=== PATIENT | male | born 1960 | race Caucasian/White ===

== ENCOUNTER 2018-12-16 01:12 | Inpatient (IN) | payer OTHER ==
[2018-12-15 15:15] LABS: INR 0.96
[~2018-12-16] VITALS: Ht 177.8 cm; Wt 87.5 kg
[2018-12-16] VITALS (13 sets, daily range): BP systolic 95–133; BP diastolic 43–87
[~2018-12-16 01:12] MED LIST: ACET500T68 PO
[2018-12-16] MEDS ORDERED: fentaNYL CITR 100 MCG/2 ML AMP ONE (11:41)
[2018-12-16] MEDS ORDERED: KETAMINE HCL 500 MG/10 ML VIAL ONE (11:42)
[2018-12-16] MEDS ORDERED: DEXAMETHASONE SOD PHOS 10MG/ML ONE (11:43)
[2018-12-16] MEDS ORDERED: PROPOFOL EMUL(*) 10MG/ML 20 ML 20 ML ONE (11:43)
[2018-12-16] MEDS ORDERED: LIDOCAINE 2% IV 100 MG/5ML SYR ONE (11:43)
[2018-12-16] MEDS ORDERED: ONDANSETRON 4 MG/2 ML VIAL ONE (11:43)
[2018-12-16] MEDS ORDERED: CELECOXIB 200 MG CAP PO ONE (12:30)
[2018-12-16] MEDS ORDERED: MIDAZOLAM 2 MG/2 ML VIAL IVP PRN (12:30)
[2018-12-16] MEDS ORDERED: ACETAMINOPHEN 500 MG TAB PO ONE (12:30)
[2018-12-16] MEDS ORDERED: ROPIVACAINE/EPI/CLONIDINE/KET 50 ML SYRINGE INJ ONE (12:30)
[2018-12-16] MEDS ORDERED: TRANEXAMIC AC 1000 MG/10ML SDV 1,000 MG in DEXTROSE 5% 50 ML BAG 50 ML IV ONE (12:30)
[2018-12-16] MEDS ORDERED: BACITRACIN 50000 UNIT/VIAL 100,000 UNIT in NS 0.9% 3000 ML IRRIGATION BAG 3,000 ML IR ONE (12:30)
[2018-12-16] MEDS ORDERED: ceFAZolin(*) 2GM/D5W 50ML 50 ML IVPB ONE (12:30)
[2018-12-16] MEDS ORDERED: PREGABALIN 150 MG CAPSULE PO ONE (12:30)
[2018-12-16] MEDS ORDERED: FAMOTIDINE 20 MG TAB PO ONE (12:30)
[2018-12-16] MEDS ORDERED: LIDOCAINE/SOD BICARB 8.4% SYR ID ONE (12:30)
[2018-12-16] MEDS ORDERED: NORMOSOL R SOLN(*) 1000 ML BAG 1,000 ML IV PRN (12:30)
[2018-12-16] MEDS ORDERED: diphenhydrAMINE 25 MG CAP PO PRN (15:40)
[2018-12-16] MEDS ORDERED: HYDROmorphone HCL 2 MG/ML SDV IVP PRN (15:40)
[2018-12-16] MEDS ORDERED: FLUSH 10 ML SYR IVP PRN (15:40)
[2018-12-16] MEDS ORDERED: BISACODYL 10 MG SUPP PR PRN (15:40)
[2018-12-16] MEDS ORDERED: diphenhydrAMINE 50 MG/ML VIAL IVP PRN (15:40)
[2018-12-16] MEDS ORDERED: MAGNESIUM HYDROXIDE* 30ML UDCP PO PRN (15:40)
[2018-12-16] MEDS ORDERED: PROMETHAZINE 25 MG/ML 1 ML AMP IVP PRN (15:40)
[2018-12-16] MEDS ORDERED: ZOLPIDEM TARTRATE 5 MG TAB PO PRN (15:40)
[2018-12-16] MEDS ORDERED: ONDANSETRON 4 MG/2 ML VIAL IVP PRN (15:40)
[2018-12-16] MEDS ORDERED: MAGNESIUM CITRATE 300 ML BTL PO PRN (15:40)
[2018-12-16] MEDS ORDERED: LR 1000 ML BAG 1000 ML IV PRN (15:40)
--- NOTE | 2018-12-16 16:26 | Hospitalist Consultation ---
History of Present Illness Requesting Physician Dr. Adams Reason for Consult Medical Management Chief Complaint s/p right hip replacement History of Present Illness He was admitted s/p right hip replacement. It is reported the surgery went well and without complication. History Home Meds Reported Medications Acetaminophen (TYLENOL EXTRA STRENGTH) 500 Mg Tablet, 500 MG PO PRN, TAB 12/08/18 Allergies: Coded Allergies: No Known Drug Allergies (Unverified , 12/08/18) Hx Smoking: Yes (OCCASSIONL CIGAR) Smoking Status: Former Smoker Caffeine Intake: Coffee Caffeine/Cups Per Day: 1 Hx Alcohol Use: Yes Alcohol Used: Beer Hx Substance Use Disorder: No Social Drug Use: Never Review of Systems All Systems Reviewed/Normal: Yes, Except as Noted Exam Vital Signs Vital Signs Date Time Temp Pulse Resp B/P (MAP) Pulse Ox O2 Delivery O2 Flow Rate FiO2 12/16/18 16:15 67 16 100 12/16/18 12:08 98.6 122/80 (94) Room Air General Appearance: Alert, Awake, No Acute Distress, Afebrile Neuro: No Gross deficits Cardiovascular: Regular Rate and Rhythm Respiratory: No Respiratory Distress, Clear to Auscultation Psych: Alert & Oriented X3, Appropriate Mood & Affect Assessment and Plan Problems: (1) Status post right hip replacement Status: Acute Assessment & Plan: Followed by Dr. Adams. He will be placed on Aspirin for DVT prophylaxis. He has no medical problems, hospitalist service will follow for any medical needs. Venous Thromboembolism Antithrombotics Is Pt On Any Antithrombotics?: No PAUL PAGAN Dec 16, 2018 16:26
--- NOTE | 2018-12-16 17:07 | OPERATIVE REPORT 1 ---
EVENT DATE: December 16, 2018 SURGEON: Kurtis Adams MD ANESTHESIOLOGIST: Dominic Jade MD ANESTHESIA: General LMA anesthesia with a spinal. MOLD CLEANER: Zuhair Lieberman PA-C PREOPERATIVE DIAGNOSIS Right hip osteoarthritis. POSTOPERATIVE DIAGNOSIS Right hip osteoarthritis. PROCEDURE PERFORMED Right total hip arthroplasty. FINDINGS The patient had a significant amount of arthritic changes, but was amenable for total hip replacement. ESTIMATED BLOOD LOSS 150 mL DRAINS None. COMPLICATIONS None. TOURNIQUET TIME Not applicable. IMPLANTS USED [employer] size 60 cup with a standard neutral liner, which was trabecular metal cluster hole cup. We put in a dome hole plug plus two screw hole plugs. The third one did not fit adequately, and so we left it out. He also had an 11 standard stem with a 40, +3.5 head. SPECIMENS None. INDICATIONS AND HISTORY This patient is a 58-year-old male who presented to my clinic for evaluation of right hip and irritation going on for some time. He continued to have pain and irritation despite conservative management, and so therefore, we talked to him about the implications of this as well as treatment options. He wanted to go ahead with a total hip arthroplasty. He understands that he is very young associated with this, and he may need to have a revision at some point, but he said he could not live with the pain any longer, and so therefore, he wanted to go ahead with the total hip arthroplasty today, 12/16/2018. We went over the risks and benefits, discussed with general anesthetic aspects and total hip replacement very much including dislocation as well as leg length discrepancy and getting up and approach differences. DESCRIPTION OF PROCEDURE As the patient was brought in the operating room, he and the procedure were both verified. He was placed supine on the operating table and induced and intubated by Anesthesia after being given a spinal. He was then turned in the lateral decubitus position with the right hip towards the ceiling, and then the right hip was prepped and draped in the usual fashion. A timeout was observed verifying the correct patient and procedure. The standard incision was made over the posterolateral aspect of the hip. It was taken through the skin and subcutaneous tissue. I was then able to go down to the IT band and the gluteal musculature and split the gluteal musculature and make a cut within the IT band. Once I was able to do this, I was then able to get down to the short external rotators and then was able to cut and tag the piriformis and make it amenable for later repair. I then cut the rest of the external rotators and then was able to dislocate the hip after cutting the capsule in a T-shape fashion. I then tagged the capsule for later repair. After dislocation, I was then able to cauterize some bleeders in the area and then make a femoral neck cut without any major difficulty. The head was very misshapen and very oval shaped. The acetabulum also had kind of an oval shape associated with it, too. I then was able to get retractors 360 degrees around the acetabulum and then remove the labrum. I then commenced reaming starting with a [address] the way up to a 59 mm reamer. Once we had good adequate rim edge loading and fit associated with this, we then put in a 60 cluster hole trabecular metal cup made by [employer]. It had excellent stability associated with it, so we put in one dome hole plug and two screw hole plugs without any issues. We then irrigated with copious amounts of saline, used some IrriSept irrigation in the area, let it sit for a minute, and then put in the liner without any issues. I then turned attention to the femur where I was able to then present it in an internally rotated and flexed position in order to get the box cutting osteotome, followed by the canal finder, followed by the lateralizing reamer. We then commenced broaching with a [address] up to an 11, which the 11 fit well. We then used the calcar planer to trim it down and then put on a standard head and neck. This was found to be a little bit too loose, and so therefore, we put on a +3.5 head, and this was found to have better stability associated with it and better leg lengths. Intraoperative x-rays confirmed this, that the cup was in good position and that the leg lengths were better, and so therefore, we then chose these as the final constructs. I then irrigated again with the IrriSept and the formal irrigation. I then removed all the trial instrumentation and then put in the final stem and head without any difficulty. I then relocated it and put it through a trial range of motion, and it looked very good. I then irrigated again and then was able to close the capsule with a heavy Ethibond suture. This was then followed by closure of the piriformis to the posterior aspect of the femur through drill holes, and then I irrigated again, closed the gluteal musculature as well as the IT band with an 0 Quill. This was then followed by 2-0 Vicryl in the fat, then 2-0 Stratafix in the subcutaneous tissue, and then subcuticular 4-0 running Monocryl. The wound was then dressed with Steri-Strips, gauze 4 x 4's, and a soft dressing. The hip wrap was placed on, and the patient was awakened, extubated, and transferred to the PACU in stable condition where he will be admitted overnight. MEY
--- NOTE | 2018-12-16 17:12 | RADIOLOGY IMAGING REPORT ---
FACILITY: [facility] - [place] PATIENT NAME: Dixon Rowell : 1960 MR: [id number] V: [id number] EXAM DATE: ORDERING PHYSICIAN: EDER HARLEY TECHNOLOGIST: Location: [facility] - [place] Patient: Dixon Rowell : 1960 Visit/Account:[id number] Date of Sevice: 12/16/2018 Exam type: PELVIS History: S/P TOTAL HIP ARTHROPASTY, CHECK PLACEMENT Comparison: Right hip in OR performed earlier in the day. Findings: There is right hip arthroplasty that appears in good anatomic alignment on this single AP view. Surg ical robyn project over the scrotum IMPRESSION: 1. As above Report Dictated By: Tammy Mijares MD at 12/16/2018 5:06 PM Report E-Signed By: Tammy Mijares MD at 12/16/2018 5:07 PM WSN:[email or web address]
--- NOTE | 2018-12-16 17:13 | RADIOLOGY IMAGING REPORT ---
FACILITY: [facility] - [place] PATIENT NAME: Dixon Rowell : 1960 MR: [id number] V: [id number] EXAM DATE: ORDERING PHYSICIAN: EDER HARLEY TECHNOLOGIST: Location: [facility] - [place] Patient: Dixon Rowell : 1960 Visit/Account:[id number] Date of Sevice: 12/16/2018 Exam type: HIP IN OR RIGHT History: RIGHT TOTAL HIP ARTHROPLASTY Comparison: None. Findings: There is a trial right hip arthroplasty that appears in relatively good anatomic alignment on this si ngle AP view. IMPRESSION: 1. As above Report Dictated By: Tammy Mijares MD at 12/16/2018 5:07 PM Report E-Signed By: Tammy Mijares MD at 12/16/2018 5:08 PM WSN:[email or web address]
[2018-12-16] MEDS ORDERED: ASPIRIN 325 MG TAB PO SCH (21:00)
[2018-12-16] MEDS: ceFAZolin(*) 2GM/D5W 50ML 50 ML IVPB SCH (21:34)
[2018-12-17 03:42] VITALS: BP 90/70
[2018-12-17] MEDS: ceFAZolin(*) 2GM/D5W 50ML 50 ML IVPB SCH (05:27)
[2018-12-17 07:54] VITALS: BP 113/69
[2018-12-17] MEDS ORDERED: OXYC-865 PO (07:58)
[2018-12-17] MEDS ORDERED: ASPI-757 PO (09:35)
--- NOTE | 2018-12-17 10:27 | Hospitalist Progress Note ---
Subjective Progress Notes Subjective He was admitted s/p hip replacement. He has no complaints this morning. He had no acute events overnight. Patient Complains of: Cardiovascular: No: Chest Pain Respiratory: No: Shortness of Breath Physical Exam Vital Signs Date Time Temp Pulse Resp B/P (MAP) Pulse Ox O2 Delivery O2 Flow Rate FiO2 12/17/18 07:54 98.7 73 16 113/69 (84) 92 Room Air 12/17/18 03:42 0.5 Intake and Output 12/17/18 07:00 Intake Total 1950 ml Output Total 100 ml Balance 1850 ml Intake Oral 400 ml IV Total 1550 ml Output Estimated Blood Loss 100 ml # Voids 1 General Appearance: Alert, Awake, No Acute Distress, Afebrile Neuro: No Gross deficits Cardiovascular: Regular Rate and Rhythm Respiratory: No Respiratory Distress, Clear to Auscultation GI: Soft and Non-Tender Psych: Alert & Oriented X3 Result Diagram: 12/17/18 0533 Assessment and Plan Problems: (1) Status post right hip replacement Status: Acute Assessment & Plan: Followed by Dr. Adams. He will be placed on Aspirin for DVT prophylaxis. He has no medical problems, hospitalist service will follow for any medical needs. Exam Sepsis Risk: No Definite Risk PAUL PAGAN Dec 17, 2018 10:27
[2018-12-17 10:45] VITALS: Ht 177.8 cm; Wt 87.5 kg
--- NOTE | 2018-12-17 12:10 | NUR ---
Occupational Therapy Impression Pt alert and agreeable to OT tx. Spouse present. Reviewed ADLs with posterior hip precautions handout. Pt has a window shade cutter and mounter/toilet riser/crutches/walker and bathtub. Mod (I) LB dressing with window shade cutter and mounter/sock aid. Spouse to assist with ADLs as needed. Educated on where to obtain sock aid if desired. Pt and spouse with no further questions/concerns for OT. No further skilled OT needs. Occupational Therapy Goals Patient's Goal
--- NOTE | 2018-12-17 12:54 | NUR ---
Physical Therapy Impression PT eval complete. Pt safe for DC home when medically appropriate. Physical Therapy Goals Patient's Goals
== END 2018-12-17 08:24 | disposition home or self-care (01) | DRG 470 ==
LOC: OR 01:12 → MED 16:48 → OBSVTOIN 16:48
PROVIDERS: ADMIT Orthopaedic Surgery; ATTEND Orthopaedic Surgery
PROC: 0SR902Z Replacement of Right Hip Joint with Metal on Polyethylene Synthetic Substitute, Open Approach (ICD-10-PCS; principal; 2018-12-16 13:23)
DX: M16.11 Unilateral primary osteoarthritis, right hip (principal); Z87.891 Personal history of nicotine dependence
CPT/HCPCS: 36415; 72170; 85014; 85018; 85610; 86850; 86900; 86901; 97161; 97165; C1713; C1776; G0378; J0690; J1100; J2001; J2250; J2405; J2704; J3010; J7060